=== PATIENT | female | born 1940 | race Caucasian/White ===

== ENCOUNTER 2019-03-21 07:37 | Day surgery (SDC) | payer MEDICARE, BC ==
[2019-03-21] MEDS ORDERED: Propofol 200 MG/20 ML SDV IV ONE (07:38)
[2019-03-21] MEDS ORDERED: Sodium Chloride 0.9% 10 ML Syringe FLUSH PRN (08:00)
[2019-03-21] MEDS ORDERED: Lactated Ringers 1,000 ML IV SCH (08:00)
--- NOTE | 2019-03-21 10:19 | PCM.OPNOTE ---
- General Post-Op/Procedure Note Date of Surgery/Procedure: 03/21/19 Operative Procedure(s): c scope with biopsy Findings: cecal polyp Pre Op Diagnosis: hx of diverticulitis Post-Op Diagnosis: cecal polyp Anesthesia Technique: LEIGH Primary Surgeon: Rustam Sherwood Anesthesia Provider: Fallon Medel Pathology: cecal polyp Complications: None Condition: Good Free Text/Narrative:: see dictation
--- NOTE | 2019-03-22 16:09 | OR ---
DATE OF OPERATION: 03/22/2019 SURGEON: Rustam Sherwood MD PROCEDURE PERFORMED: Colonoscopy with cold forceps biopsy. PREOPERATIVE DIAGNOSIS: History of diverticulitis. POSTOPERATIVE DIAGNOSIS: Cecal polyp. INDICATIONS FOR PROCEDURE: This is a 78-year-old white female who recently was treated for bout of diverticulitis as her last colonoscopy was greater than 5 years ago. To meet standard, she was offered and accepted colonoscopy. DESCRIPTION OF PROCEDURE: After an excellent IV sedation was administered, digital rectal exam was performed. No marked abnormality was noted. Flexible colonoscope was inserted and advanced to the cecum. Prep was excellent. Following findings were noted. Ascending colon, cecal polyp, biopsied with cold biopsy forceps and obliterated, transverse colon unremarkable, descending colon, unremarkable except for scattered diverticula. Sigmoid demonstrates some mild diverticulosis. Rectum and anus, unremarkable. Results will be given by letter. Patient tolerated the procedure well. /[id number] /MANUEL
== END 2019-03-21 11:07 | disposition home or self-care (01) ==
LOC: FB.SDS 07:37
PROVIDERS: ATTEND Surgery
DX: D12.2 Benign neoplasm of ascending colon (principal); K57.30 Diverticulosis of large intestine without perforation or abscess without bleeding; E03.9 Hypothyroidism, unspecified; M81.0 Age-related osteoporosis without current pathological fracture; Z87.19 Personal history of other diseases of the digestive system; Z79.899 Other long term (current) drug therapy
CPT/HCPCS: 00811; 45380; 88305; J2704; J7120

== ENCOUNTER 2021-03-28 19:41 | Emergency (ER) | payer MEDICARE, BC ==
--- NOTE | 2021-03-28 20:21 | EDM.PDOC ---
ED HPI GENERAL MEDICAL PROBLEM - General Stated Complaint: ABDOMINAL PAIN Time Seen by Provider: 03/28/21 20:15 Source of Information: Reports: Patient History Limitations: Reports: No Limitations - History of Present Illness INITIAL COMMENTS - FREE TEXT/NARRATIVE: 80-year-old female who reports on the afternoon/evening of 03/26/2020 when she began to have some mild pain in her left lower quadrant and left flank area. She reports that over time the pain has gotten progressively worse and it is now about an 8/10 when she eats or has certain movements or palpates the area. It is an aching pain that is constant at a low level but has intermittent spikes in her pain that her crampy type pains. She has had no nausea or vomiting. She has had normal bowel movements. There was no blood in her stools. She states she has had similar pains to this in the past and has had diverticulitis. She has never had to be admitted for this and has always been able to take antibiotic at home with resolution of her symptoms. She presents to the emergency department now via private vehicle with her . She does feel that she has had some chills but no measured fever. He is been no dysuria or hematuria. She has been able to eat and drink normally but it does seem to make her symptoms worse when she does this. There are no other associated signs or symptoms. There are no other modifying factors. Onset: Other (03/26/2021) Duration: Getting Worse Location: Reports: Abdomen (Left lower quadrant and flank area.), Radiates to (Left back.) Quality: Reports: Ache, Sharp Severity: Moderate Improves with: Reports: Rest Worsens with: Reports: Eating, Other (Palpation), Movement Context: Reports: Other (As above.) Associated Symptoms: Reports: No Other Symptoms (Except as above.) Treatments FIELD RESEARCH ASSOCIATE: Reports: Other (see below) (Nothing.) left lower quad Pain Score (Numeric/FACES): 3 - Related Data Allergies Allergy/AdvReac Type Severity Reaction Status Date / Time No Known Allergies Allergy Verified 03/28/21 22:45 Home Meds: Home Meds Alendronate Sodium [Fosamax] 70 mg PO WEEKLY 03/20/19 [History] Ramiro/D3/Mag11/Zinc/Directional Survey Drafter/Niraj/Bor [Caltrate 600+D Plus Tablet] 1 each PO BID 03/20/19 [History] Levothyroxine 75 mcg PO DAILY 03/20/19 [History] Multivitamin [Daily Multiple Vitamin] 1 each PO DAILY 03/20/19 [History] Ciprofloxacin [Ciprofloxacin HCl] 500 mg PO BID 10 Days #20 tab 03/28/21 [Rx] metroNIDAZOLE [Flagyl] 500 mg PO BID 10 Days #20 tablet 03/28/21 [Rx] traMADol [Ultram] 50 mg PO Q6H PRN #10 tab 03/28/21 [Rx] Past Medical History HEENT History: Reports: Cataract Other HEENT History: VITREOUS DEGENERATION, HYPERMETROPIA BOTH EYES, ASTIGMATISM, PRESBYOPIA Gastrointestinal History: Reports: Diverticulosis (Several bouts of diverticulitis in the past.), Hemorrhoids Musculoskeletal History: Reports: Osteoporosis Endocrine/Metabolic History: Reports: Hypothyroidism - Past Surgical History HEENT Surgical History: Reports: Tonsillectomy GI Surgical History: Reports: Colonoscopy Endocrine Surgical History: Reports: Thyroidectomy Social & Family History - Tobacco Use Tobacco Use Status *Q: Unknown Ever Used Tobacco (Nonsmoker.) - Caffeine Use Caffeine Use: Reports: Coffee - Alcohol Use Alcohol Use History: No - Living Situation & Occupation Living situation: Reports: , with Spouse ED ROS GENERAL - Review of Systems Review Of Systems: See Below Constitutional: Reports: Chills. Denies: Fever HEENT: Denies: Throat Pain, Throat Swelling Respiratory: Denies: Shortness of Breath, Cough Cardiovascular: Denies: Chest Pain, Lightheadedness GI/Abdominal: Reports: Abdominal Pain. Denies: Nausea, Vomiting : Denies: Dysuria, Hematuria Musculoskeletal: Denies: Neck Pain, Back Pain Skin: Denies: Diaphoresis, Rash Neurological: Denies: Dizziness, Headache Psychiatric: Reports: Anxiety Hematologic/Lymphatic: Denies: Easy Bleeding, Easy Bruising ED EXAM, GI/ABD - Physical Exam Exam: See Below Exam Limited By: No Limitations General Appearance: Alert, WD/WN, Mild Distress Eyes: Bilateral: Normal Appearance, EOMI Ears: Normal External Exam, Hearing Grossly Normal Nose: Normal Inspection, Normal Mucosa, No Blood Throat/Mouth: Normal Inspection, Normal Lips, Normal Oropharynx, Normal Voice, No Airway Compromise Head: Atraumatic, Normocephalic Respiratory/Chest: No Respiratory Distress, Lungs Clear, Normal Breath Sounds, No Accessory Muscle Use, Chest Non-Tender Cardiovascular: Normal Peripheral Pulses, Regular Rate, Rhythm, No Murmur GI/Abdominal Exam: Normal Bowel Sounds, Soft, No Mass, Tender (In left lower quadrant.). No: Rebound Back Exam: Normal Inspection. No: CVA Tenderness (R), CVA Tenderness (L) Extremities: Normal Inspection, Normal Range of Motion, Non-Tender, No Pedal Edema Neurological: Alert, Oriented, CN II-XII Intact, Normal Cognition, No Motor/Sensory Deficits Psychiatric: Flat Affect Skin Exam: Warm, Dry, Intact, Normal Color, No Rash Course - Vital Signs Last Recorded V/S: Last Vital Signs Temp 36.8 C 03/28/21 23:00 Pulse 78 03/28/21 23:00 Resp 16 03/28/21 23:00 BP 132/75 03/28/21 23:00 Pulse Ox 99 03/28/21 23:00 - Orders/Labs/Meds Orders: Active Orders 24 hr Category Date Time Status Abdomen Pelvis wo Cont [CT] Stat Exams 03/28/21 20:55 Taken CULTURE URINE [RM] Stat Lab 03/28/21 20:45 Received Labs: Laboratory Tests 03/28/21 03/28/21 03/28/21 Range/Units 20:45 20:55 20:55 WBC 10.3 (3.0-10.3) x10-3/uL RBC 4.43 (3.60-5.20) x10(6)uL Hgb 12.6 (11.4-15.5) g/dL Hct 38.6 (34.2-48.2) % MCV 87.2 (76.7-100.5) fL MCH 28.5 (23.9-33.9) pg MCHC 32.7 (31.9-34.8) g/dL RDW 14.2 (12.3-16.5) % Plt Count 291 (151-488) x10(3)uL MPV 7.1 (7.1-12.4) fL Neut % (Auto) 72.2 (30.8-76.2) % Lymph % (Auto) 16.4 L (18.4-52.1) % [place] % (Auto) 9.3 (4.4-15.7) % Eos % (Auto) 1.7 (0.6-8.1) % Baso % (Auto) 0.4 (0.2-1.5) % Neut # (Auto) 7.4 H (1.5-6.3) x10-3/uL Lymph # (Auto) 1.7 (1.0-4.4) x10-3/uL [place]ancock # (Auto) 1.0 (0.3-1.0) x10-3/uL Eos # (Auto) 0.2 (0.0-0.8) x10-3/uL Baso # (Auto) 0.0 (0.0-0.1) x10-3/uL Sodium 139 (135-145) mmol/L Potassium 4.0 (3.5-5.3) mmol/L Chloride 104 (100-110) mmol/L Carbon Dioxide 29 (21-32) mmol/L BUN 18 (7-18) mg/dL Creatinine 1.1 H (0.55-1.02) mg/dL Est Cr Clr Drug Dosing 36.40 mL/min Estimated GFR (MDRD) 48 L (>60) BUN/Creatinine Ratio 16.4 (9-20) Glucose 109 (80-116) mg/dL Calcium 8.8 (8.6-10.2) mg/dL Magnesium 2.2 (1.8-2.5) mg/dL Total Bilirubin 0.5 (0.1-1.3) mg/dL AST 17 (5-25) IU/L ALT 24 (12-36) U/L Alkaline Phosphatase 72 (56-112) IU/L C-Reactive Protein (0.5-0.9) mg/dL Total Protein 8.3 H (6.0-8.0) g/dL Albumin 3.6 (3.2-4.6) g/dL Globulin 4.7 g/dL Albumin/Globulin Ratio 0.8 Urine Color Yellow (YELLOW) Urine Appearance Slightly cloudy (CLEAR) Urine pH 5.0 (5.0-6.5) Ur Specific [place] 1.020 (1.010-1.025) Urine Protein Negative (NEGATIVE) mg/dL Urine Glucose (UA) Normal (NORMAL) mg/dL Urine Ketones Negative (NEGATIVE) mg/dL Urine Occult Blood Moderate H (NEGATIVE) Urine Nitrite Positive H (NEGATIVE) Urine Bilirubin Negative (NEGATIVE) Urine Urobilinogen Normal (NEGATIVE) mg/dL Ur Leukocyte Esterase Small H (NEGATIVE) Urine RBC 0-5 (0-5) Urine WBC 10-20 H (0-5) Ur Squamous Epith Cells Occasional (NS,R,O) Urine Bacteria Moderate H (NS) 03/28/21 Range/Units 20:55 WBC (3.0-10.3) x10-3/uL RBC (3.60-5.20) x10(6)uL Hgb (11.4-15.5) g/dL Hct (34.2-48.2) % MCV (76.7-100.5) fL MCH (23.9-33.9) pg MCHC (31.9-34.8) g/dL RDW (12.3-16.5) % Plt Count (151-488) x10(3)uL MPV (7.1-12.4) fL Neut % (Auto) (30.8-76.2) % Lymph % (Auto) (18.4-52.1) % Hancock % (Auto) (4.4-15.7) % Eos % (Auto) (0.6-8.1) % Baso % (Auto) (0.2-1.5) % Neut # (Auto) (1.5-6.3) x10-3/uL Lymph # (Auto) (1.0-4.4) x10-3/uL [place] # (Auto) (0.3-1.0) x10-3/uL Eos # (Auto) (0.0-0.8) x10-3/uL Baso # (Auto) (0.0-0.1) x10-3/uL Sodium (135-145) mmol/L Potassium (3.5-5.3) mmol/L Chloride (100-110) mmol/L Carbon Dioxide (21-32) mmol/L BUN (7-18) mg/dL Creatinine (0.55-1.02) mg/dL Est Cr Clr Drug Dosing mL/min Estimated GFR (MDRD) (>60) BUN/Creatinine Ratio (9-20) Glucose (80-116) mg/dL Calcium (8.6-10.2) mg/dL Magnesium (1.8-2.5) mg/dL Total Bilirubin (0.1-1.3) mg/dL AST (5-25) IU/L ALT (12-36) U/L Alkaline Phosphatase (56-112) IU/L C-Reactive Protein 4.0 H* (0.5-0.9) mg/dL Total Protein (6.0-8.0) g/dL Albumin (3.2-4.6) g/dL Globulin g/dL Albumin/Globulin Ratio Urine Color (YELLOW) Urine Appearance (CLEAR) Urine pH (5.0-6.5) Ur Specific [place] (1.010-1.025) Urine Protein (NEGATIVE) mg/dL Urine Glucose (UA) (NORMAL) mg/dL Urine Ketones (NEGATIVE) mg/dL Urine Occult Blood (NEGATIVE) Urine Nitrite (NEGATIVE) Urine Bilirubin (NEGATIVE) Urine Urobilinogen (NEGATIVE) mg/dL Ur Leukocyte Esterase (NEGATIVE) Urine RBC (0-5) Urine WBC (0-5) Ur Squamous Epith Cells (NS,R,O) Urine Bacteria (NS) Meds: Medications Discontinued Medications Generic Name Dose Route Start Last Admin Trade Name Freq PRN Reason Stop Dose Admin Ciprofloxacin 500 mg 03/28/21 22:49 03/28/21 23:05 Ciprofloxacin 500 Mg Tab PO 03/28/21 22:50 500 mg ONETIME ONE Administration Metronidazole 500 mg 03/28/21 22:49 03/28/21 23:04 Metronidazole 500 Mg Tab PO 03/28/21 22:50 500 mg ONETIME ONE Administration - Radiology Interpretation Free Text/Narrative:: CT scan of abdomen and pelvis showed mild acute sigmoid diverticulitis [facility] the [facility] radi[facility]. - Re-Assessments/Exams Free Text/Narrative Re-Assessment/Exam: 03/28/21 21:40: White blood cell count is 10.3. Hemoglobin is 12.6. Platelet count is normal. Sodium is 139. Potassium is 4.0. Bicarbonate was 29. BUN is 18 and creatinine is 1.1. Glucose is 109. LFTs are normal. A CRP is elevated at 4.0. Urinalysis had 10-20 white blood cells per high power field and there were bacteria present. The urine was sent for culture. 03/28/21 22:40: The CT scan of her abdomen and pelvis did show sigmoid diverticulitis. She remains nontoxic. She has had this several times in the past and has always been able to treat this as an outpatient at home with oral antibiotics. She had refused pain medication earlier and is still refusing pain medication and I will place her on ciprofloxacin and Flagyl daily for 10 days. Precautions and reasons for return to the emergency department were discussed with the patient and with her while patient was in the emergency department and were detailed in the patient's discharge instructions. She is to follow-up with her primary provider. 03/28/21 22:55: The patient is now wanting some pain medication in addition to the Tylenol that she has been taking. She doesn't want any right now and I did send a prescription of tramadol with her so she can have something for moderate to severe pain. She can also take Tylenol and ibuprofen for pain. Departure - Departure Time of Disposition: 22:47 Disposition: Home, Self-Care 01 Condition: Good Clinical Impression: Sigmoid diverticulitis - Discharge Information Prescriptions: Ciprofloxacin [Ciprofloxacin HCl] 500 mg PO BID 10 Days #20 tab metroNIDAZOLE [Flagyl] 500 mg PO BID 10 Days #20 tablet traMADol [Ultram] 50 mg PO Q6H PRN #10 tab PRN Reason: Moderate to severe pain Instructions: Diverticulitis, [id number] Referrals: PCP,None [Primary Care Provider] - Forms: ED Department Discharge Additional Instructions: Your blood tests were reassuring. Your urine test did show evidence of infection but I think is related to your diverticulitis infection. The CT scan of your abdomen and pelvis did show colitis of the sigmoid colon. You should increase your fluid intake. Take probiotics or eat yogurt while you are taking the antibiotics. Medication as prescribed (ciprofloxacin 500 mg, Flagyl 500 mg). You were given the first dose of these medications tonight in the emergency department and the remainder of these medications were sent to [facility] and you need to pick these medications up tomorrow and begin taking them starting tomorrow. Medications as prescribed for pain (tramadol 50 mg). Follow- up with your primary doctor to ensure resolution of your diverticulitis. Back to the emergency department for increasing pain, fever, severe weakness or any other concerning signs or symptoms. Sepsis Event Note (ED) - Focused Exam Vital Signs: Vital Signs Temp Pulse Resp BP Pulse Ox 03/28/21 23:00 36.8 C 78 16 132/75 99 03/28/21 20:06 37.1 C 84 18 143/43 H 94 L - My Orders Last 24 Hours: My Active Orders 03/28/21 20:45 CULTURE URINE [RM] Stat 03/28/21 20:55 Abdomen Pelvis wo Cont [CT] Stat - Assessment/Plan Last 24 Hours: My Active Orders 03/28/21 20:45 CULTURE URINE [RM] Stat 03/28/21 20:55 Abdomen Pelvis wo Cont [CT] Stat
[2021-03-28] MEDS ORDERED: Ciprofloxacin 500 MG Tab PO ONE (22:49)
[2021-03-28] MEDS ORDERED: metroNIDAZOLE 500 MG Tab PO ONE (22:49)
== END 2021-03-28 23:10 | disposition home or self-care (01) ==
LOC: FB.ED 19:41
DX: K57.32 Diverticulitis of large intestine without perforation or abscess without bleeding (principal); E03.9 Hypothyroidism, unspecified; Z79.899 Other long term (current) drug therapy
CPT/HCPCS: 36415; 74176; 80053; 81001; 83735; 85025; 86140; 87086; 87088; 99284; A9270; 87186

== ENCOUNTER 2024-10-09 07:13 | Day surgery (SDC) | payer MEDICARE ==
[2024-10-09] MEDS ORDERED: Sodium Chloride 0.9% 10 ML Syringe IV ONE (07:14)
[2024-10-09] MEDS ORDERED: Midazolam 1 MG/ML 2 ML SDV IV ONE (07:14)
[2024-10-09] MEDS ORDERED: fentaNYL 100 MCG/2 ML SDV IV ONE (07:14)
[2024-10-09] MEDS ORDERED: Lactated Ringers 1,000 ML IV PRN (07:30)
[2024-10-09] MEDS ORDERED: Sodium Chloride 0.9% 10 ML Syringe FLUSH PRN (07:30)
[2024-10-09] MEDS: acetaZOLAMIDE 500 MG Cap.ER PO ONE (09:53)
== END 2024-10-09 10:08 | disposition home or self-care (01) ==
LOC: FB.SDS 07:13
PROVIDERS: ATTEND Ophthalmology
DX: H25.813 Combined forms of age-related cataract, bilateral (principal); H18.513 Endothelial corneal dystrophy, bilateral; H16.223 Keratoconjunctivitis sicca, not specified as Sjogren's, bilateral; H35.3131 Nonexudative age-related macular degeneration, bilateral, early dry stage; H52.03 Hypermetropia, bilateral; H52.223 Regular astigmatism, bilateral; E03.9 Hypothyroidism, unspecified; Z79.890 Hormone replacement therapy; Z79.899 Other long term (current) drug therapy
CPT/HCPCS: 00142; 66984; 99100; A9270; J2250; J3010; V2632

== ENCOUNTER 2024-10-23 09:08 | Day surgery (SDC) | payer MEDICARE ==
[2024-10-23] MEDS ORDERED: Midazolam 1 MG/ML 2 ML SDV IV ONE (09:09)
[2024-10-23] MEDS ORDERED: fentaNYL 100 MCG/2 ML SDV IV ONE (09:09)
[2024-10-23] MEDS ORDERED: Lactated Ringers 1,000 ML IV PRN (10:45)
[2024-10-23] MEDS ORDERED: Sodium Chloride 0.9% 10 ML Syringe FLUSH PRN (10:45)
[2024-10-23] MEDS: acetaZOLAMIDE 500 MG Cap.ER PO ONE (11:06)
== END 2024-10-23 11:20 | disposition home or self-care (01) ==
LOC: FB.SDS 09:08
PROVIDERS: ATTEND Ophthalmology
DX: H26.9 Unspecified cataract (principal); E03.9 Hypothyroidism, unspecified; Z79.890 Hormone replacement therapy; Z79.899 Other long term (current) drug therapy
CPT/HCPCS: 00142; 66984; 99100; A9270; J2250; J3010; V2632